=== PATIENT | male | born 1945 | race Caucasian/White ===

== ENCOUNTER 2019-04-08 22:02 | Emergency (ER) | payer MEDICARE ==
[~2019-04-08] VITALS: Ht 182.9 cm; Wt 115.7 kg
[2019-04-08 22:15] VITALS: BP_SYST 150
[2019-04-09] MEDS ORDERED: ACETAMINOPHEN 500 MG TABLET PO ONE (00:45)
[2019-04-09] MEDS ORDERED: DIPH-TET-PERTUS Vaccine 0.5 ML VIAL (ADACEL) I.M. ONE (00:45)
[2019-04-09] MEDS ORDERED: CEPHALEXIN 500 MG CAPSULE PO ONE (00:45)
[2019-04-09] MEDS ORDERED: BACITRACIN ZINC 15 GM TOPICAL OINTMENT TP ONE (00:45)
[2019-04-09 01:03] VITALS: BP_SYST 138
== END 2019-04-09 01:05 | disposition home or self-care (01) ==
LOC: SED 22:02
DX: S61.412A Laceration without foreign body of left hand, initial encounter (principal); W25.XXXA Contact with sharp glass, initial encounter; Y93.89 Activity, other specified; Y92.89 Other specified places as the place of occurrence of the external cause; Y99.8 Other external cause status
CPT/HCPCS: 90715; 99283